=== PATIENT | female | born 1955 | race Caucasian/White ===

== ENCOUNTER 2020-03-17 16:56 | Outpatient (CLI) | payer OTHER, SELFPAY ==
--- NOTE | ~2020-03-17 | MM_ITS ---
EXAMINATION: MM screening vini BI w yumiko HISTORY: Screening mammogram TECHNIQUE: Craniocaudal and mediolateral oblique 3-D tomosynthesis images were obtained and synthetic 2-D images were generated. CAD analysis was submitted and interpreted. COMPARISON: 02/05/2019 diagnostic right digital mammogram and limited right breast ultrasound 01/19/2019, 01/12/2018 and 01/04/2017 bilateral digital screening mammogram examinations BREAST PARENCHYMAL COMPOSITION: There are scattered areas of fibroglandular density. FINDINGS: There is a biopsy marker on the left; history of prior benign left breast biopsy. There is suggestion of a 6 mm mass in the right breast lower outer quadrant (CC tomosynthesis image 2 ). Diagnostic right mammogram and breast ultrasound is recommended. Otherwise there is no evidence of suspicious mass, calcification, or architectural distortion to sugg est malignancy in either breast. There has been no suspicious interval change. IMPRESSION: 1. 6 mm right breast mass is suggested. 2. Diagnostic right mammogram and right breast ultrasound are recommended. BIRADS Category 0: Incomplete; need additional imaging evaluation Reviewed, dictated and finalized at location A.
== END 2020-03-17 16:57 | disposition home or self-care (01) ==
LOC: ANHIMG 16:58
PROVIDERS: PCP Family Medicine; Visit Provider Family Medicine
DX: Z12.31 Encounter for screening mammogram for malignant neoplasm of breast (principal); R92.8 Other abnormal and inconclusive findings on diagnostic imaging of breast
CPT/HCPCS: 77063; 77067

== ENCOUNTER 2020-04-10 11:20 | Outpatient (CLI) | payer OTHER, SELFPAY ==
--- NOTE | ~2020-04-10 | MM_ITS ---
EXAMINATION: MM diagnostic mammo unilat RT HISTORY: 69 or mass suggested in the lower outer quadrant of right breast on screening mammogram of TECHNIQUE: Additional 3-D tomosynthesis ML full-field and spot MLO, CC and rotated lateral CC images of the right breast were performed and synthetic 2-D images were generated. CAD analysis was submitt ed and interpreted. High resolution upper outer quadrant and lower outer quadrant right breast ultras ound was performed. COMPARISON: 03/17/2020 bilateral digital screening mammogram FINDINGS: MAMMOGRAPHIC FINDINGS: No suspicious mammographic mass or architectural distortion is evident. ULTRASOUND: 6:00 near nipple: Rounded 4 mm complicated cyst with through transmission and posterior enhancement 10:00 4 cm from nipple: 2 parallel hypoechoic lesions are noted, measuring 2.7 x 4.1 x 2.7 mm and 7.6 x 7.3 x 3.6 mm. There is no internal vascularity or suspicious shadowing. IMPRESSION: 1. No mammographic evidence of malignancy 2. . Routine mammographic screening in one year is recommended. BI-RADS Category 2: Benign finding(s). Reviewed, dictated and finalized at location A.
--- NOTE | ~2020-04-10 | US_ITS ---
US breast RT limited DATE: 04/10/2020 12:16 INDICATION: Suggestion of 6 mm mass in the right breast lower outer quadrant on 03/17/2020 screening ma mmogram Please refer to 04/10/2020 diagnostic right mammogram and ultrasound report IMPRESSION: BI-RADS Category 2: Benign Recommendation: Routine annual mammographic screening Reviewed, dictated and finalized at Location [facility]. Reviewed, dictated and finalized at location A.
== END 2020-04-10 11:21 | disposition home or self-care (01) ==
PROVIDERS: PCP Family Medicine; Visit Provider Family Medicine
DX: R92.8 Other abnormal and inconclusive findings on diagnostic imaging of breast (principal)
CPT/HCPCS: 76642; 77065

== ENCOUNTER 2021-04-15 17:24 | Outpatient (CLI) | payer OTHER, SELFPAY ==
--- NOTE | ~2021-04-15 | MM_ITS ---
EXAMINATION: MM screening vini BI w yumiko HISTORY: Screening TECHNIQUE: Craniocaudal and mediolateral oblique 3-D tomosynthesis images were obtained and synthetic 2-D images were generated. CAD analysis was submitted and interpreted. COMPARISON: Comparison to multiple prior studies sequentially, with oldest reviewed study dated 01/04. BREAST PARENCHYMAL COMPOSITION: The breasts are heterogeneously dense, which may obscure small masses . FINDINGS: There is no evidence of suspicious mass, calcification, or architectural distortion to sugg est malignancy in either breast. There has been no suspicious interval change. IMPRESSION: 1. No mammographic evidence of malignancy. 2. Recommend routine screening mammography in one year. BI-RADS Category 1: Negative Reviewed, dictated and finalized at location A.
== END 2021-04-15 17:25 | disposition home or self-care (01) ==
PROVIDERS: PCP Family Medicine; Visit Provider Family Medicine
DX: Z12.31 Encounter for screening mammogram for malignant neoplasm of breast (principal)
CPT/HCPCS: 77063; 77067